=== PATIENT | male | born 1940 | race Caucasian/White ===

== ENCOUNTER 2019-06-07 16:36 | Emergency (ER) | payer MEDICAID, MEDICARE, OTHER ==
[~2019-06-07] VITALS: Ht 167.6 cm; Wt 102.0 kg
[~2019-06-07 16:36] MED LIST: ALFUZOSIN; GABAPENTIN; GLYB/METFORM; LISINOPRIL; proair hfa INH; zpack
[2019-06-07 19:01] LABS: BASOPHILS % 0.7 % (0.0-2.0); EOSINOPHILS % 2.8 % (0.0-5.0); HEMATOCRIT. 39.6 % (42.0-52.0); HEMOGLOBIN. 13.3 g/dL (14.0-18.0); LYMPHOCYTES % 21.5 % (20.0-50.0); MEAN CORPUSCULAR HEMOGLOBIN 30.1 pg (28.0-32.0); MEAN CORPUSCULAR VOLUME 89.5 fL (80.0-94.0); MEAN PLATELET VOLUME 7.8 fl (7.4-10.4); PLATELET 135 x1000/uL (130-400); RED BLOOD CELL COUNT 4.42 mill/uL (4.7-6.1)
[2019-06-07 19:06] LABS: PROTHROMBIN TIME 10.7 sec (9.6-11.0)
[2019-06-07 19:08] LABS: CHLORIDE 103 mEq/L (98-107)
[2019-06-07] MEDS ORDERED: DICYCLOMINE 10 MG/5 ML ORAL SYR PO STA (19:57)
[2019-06-07] MEDS ORDERED: MAGNESIUM/ALUMINUM HYDROXIDE/SIMETHICONE 30ML UDC PO STA (19:57)
[2019-06-07] MEDS ORDERED: VISCOUS LIDOCAINE 2% 15 ML UDC PO STA (19:57)
[2019-06-07 20:46] VITALS: BP 155/95
== END 2019-06-07 20:47 | disposition home or self-care (01) ==
LOC: ER 16:36
DX: R10.9 Unspecified abdominal pain (principal); R11.0 Nausea; E11.9 Type 2 diabetes mellitus without complications; I95.9 Hypotension, unspecified; Z79.899 Other long term (current) drug therapy
CPT/HCPCS: 36415; 74176; 80053; 85025; 93005; 99285